=== PATIENT | male | born 1990 | race Caucasian/White ===

== ENCOUNTER 2017-01-23 22:48 | Emergency (ER) | payer MEDICAID ==
[2017-01-23] MEDS ORDERED: Ketorolac 30 MG/ML SDV IVPUSH ONE (22:54)
[2017-01-23] MEDS ORDERED: Sodium Chloride 0.9% 1,000 ML IV ONE (22:55)
[2017-01-23] MEDS ORDERED: Ondansetron 4 MG/2 ML SDV IVPUSH ONE (22:55)
--- NOTE | 2017-01-23 23:03 | EDM.PDOC ---
ED HPI GENERAL MEDICAL PROBLEM - General Chief Complaint: Abdominal Pain Stated Complaint: PT HAS STOMACH PAINS Time Seen by Provider: 01/24/17 00:29 - History of Present Illness INITIAL COMMENTS - FREE TEXT/NARRATIVE: HISTORY AND PHYSICAL: History of present illness: Patient 26-year-old white male presents with concern of abdominal pain and constipation he gives over last 2 days he denies diarrhea he states he has had some nausea vomiting denies fever chills denies trauma he has had prior cholecystectomy he denies other abdominal surgery Review of systems: As per history of present illness and below otherwise all systems reviewed and negative. Past medical history: As per history of present illness and as reviewed below otherwise noncontributory. Surgical history: As per history of present illness and as reviewed below otherwise noncontributory. Social history: No reported history of drug or alcohol abuse. Family history: As per history of present illness and as reviewed below otherwise noncontributory. Physical exam: HEENT: Atraumatic, normocephalic, pupils reactive, negative for conjunctival pallor or scleral icterus, mucous membranes moist, throat clear, neck supple, nontender, trachea midline. Lungs: Clear to auscultation, breath sounds equal bilaterally, chest nontender. Heart: S1S2, regular, negative for clicks, rubs, or JVD. Abdomen: Soft, nondistended, no localized tenderness. Negative for masses or hepatosplenomegaly. Negative for costovertebral tenderness. Pelvis: Stable nontender. Genitourinary: Deferred. Rectal: Deferred. Extremities: Atraumatic, negative for cords or calf pain. Neurovascular unremarkable. Neuro: Awake, alert, oriented. Cranial nerves II through XII unremarkable. Cerebellum unremarkable. Motor and sensory unremarkable throughout. Exam nonfocal. Diagnostics: CBC CMP amylase lipase UA UDS CT abdomen and pelvis Therapeutics: saline 1 L bolus Zofran 4 mg IV Toradol 30 mg IV Impression: #1 abdominal pain #2 constipation Definitive disposition and diagnosis as appropriate pending reevaluation and review of above. Abdominal Pain Score (Numeric/FACES): 9 - Related Data Allergies Allergy/AdvReac Type Severity Reaction Status Date / Time No Known Allergies Allergy Verified 01/23/17 22:53 Home Meds: Home Meds . [No Known Home Meds] 01/23/17 [History] ED ROS GENERAL - Review of Systems Review Of Systems: ROS reveals no pertinent complaints other than HPI. ED EXAM, GENERAL - Physical Exam Exam: See Below (See dictation) Course - Vital Signs Last Recorded V/S: Last Vital Signs Temp 36.5 C 01/23/17 22:57 Pulse 85 01/23/17 22:57 Resp 16 01/23/17 22:57 BP 154/99 H 01/23/17 22:57 Pulse Ox 96 01/23/17 22:57 - Orders/Labs/Meds Orders: Active Orders 24 hr Category Date Time Status Abdomen Pelvis wo Cont [CT] Stat Exams 01/23/17 22:57 Taken Labs: Laboratory Tests 01/23/17 01/23/17 01/23/17 Range/Units 23:00 23:00 23:00 WBC 11.15 H (4.0-11.0) K/uL RBC 5.05 (4.50-5.90) M/uL Hgb 15.7 (13.0-17.0) g/dL Hct 44.6 (38.0-50.0) % MCV 88.3 (80.0-98.0) fL MCH 31.1 (27.0-32.0) pg MCHC 35.2 (31.0-37.0) g/dL RDW Std Deviation 38.2 (28.0-62.0) fl RDW Coeff of Janie 12 (11.0-15.0) % Plt Count 237 (150-400) K/uL MPV 10.10 (7.40-12.00) fL Neut % (Auto) 65.8 (48.0-80.0) % Lymph % (Auto) 25.0 (16.0-40.0) % Woodward % (Auto) 7.4 (0.0-15.0) % Eos % (Auto) 1.4 (0.0-7.0) % Baso % (Auto) 0.4 (0.0-1.5) % Neut # (Auto) 7.3 H (1.4-5.7) K/uL Lymph # (Auto) 2.8 H (0.6-2.4) K/uL Woodward # (Auto) 0.8 (0.0-0.8) K/uL Eos # (Auto) 0.2 (0.0-0.7) K/uL Baso # (Auto) 0.0 (0.0-0.1) K/uL Nucleated RBC % 0.0 /100WBC Nucleated RBCs # 0 K/uL Sodium 141 (136-146) mmol/L Potassium 4.4 (3.5-5.1) mmol/L Chloride 109 (98-110) mmol/L Carbon Dioxide 20 L (21-31) mmol/L BUN 14 (6.0-23.0) mg/dL Creatinine 1.0 (0.6-1.5) mg/dL Est Cr Clr Drug Dosing 127.87 mL/min Estimated GFR (MDRD) > 60.0 ml/min Glucose 116 H (60-110) mg/dL Calcium 9.6 (8.8-10.8) mg/dL Total Bilirubin 0.4 (0.1-1.5) mg/dL AST 37 (5-40) IU/L ALT 70 H (8-54) IU/L Alkaline Phosphatase 63 (40-150) Total Protein 7.7 (6.0-8.0) g/dL Albumin 4.2 (3.5-5.0) g/dL Globulin 3.5 (2.0-3.5) g/dL Albumin/Globulin Ratio 1.2 L (1.3-2.8) Amylase 21 (10-90) U/L Lipase 10 (7-80) U/L Urine Color Urine Appearance Urine pH (5.0-8.0) Ur Specific [place] (1.001-1.035) Urine Protein (NEGATIVE) mg/dL Urine Glucose (UA) (NEGATIVE) mg/dL Urine Ketones (NEGATIVE) mg/dL Urine Occult Blood (NEGATIVE) Urine Nitrite (NEGATIVE) Urine Bilirubin (NEGATIVE) Urine Ictotest Urine Urobilinogen (<2.0) EU/dL Ur Leukocyte Esterase (NEGATIVE) Urine RBC (0-2/HPF) Urine WBC (0-5/HPF) Ur Epithelial Cells (NONE-FEW) Urine Bacteria (NEGATIVE) Urine Opiates Screen NEGATIVE (NEGATIVE) Ur Oxycodone Screen NEGATIVE (NEGATIVE) Urine Methadone Screen NEGATIVE (NEGATIVE) Ur Barbiturates Screen NEGATIVE (NEGATIVE) Ur Phencyclidine Scrn NEGATIVE (NEGATIVE) Ur Amphetamine Screen NEGATIVE (NEGATIVE) U Methamphetamines Scrn NEGATIVE (NEGATIVE) U Benzodiazepines Scrn NEGATIVE (NEGATIVE) U Cocaine Metab Screen NEGATIVE (NEGATIVE) U Marijuana (THC) Screen NEGATIVE (NEGATIVE) 01/23/17 Range/Units 23:00 WBC (4.0-11.0) K/uL RBC (4.50-5.90) M/uL Hgb (13.0-17.0) g/dL Hct (38.0-50.0) % MCV (80.0-98.0) fL MCH (27.0-32.0) pg MCHC (31.0-37.0) g/dL RDW Std Deviation (28.0-62.0) fl RDW Coeff of Janie (11.0-15.0) % Plt Count (150-400) K/uL MPV (7.40-12.00) fL Neut % (Auto) (48.0-80.0) % Lymph % (Auto) (16.0-40.0) % Woodward % (Auto) (0.0-15.0) % Eos % (Auto) (0.0-7.0) % Baso % (Auto) (0.0-1.5) % Neut # (Auto) (1.4-5.7) K/uL Lymph # (Auto) (0.6-2.4) K/uL Woodward # (Auto) (0.0-0.8) K/uL Eos # (Auto) (0.0-0.7) K/uL Baso # (Auto) (0.0-0.1) K/uL Nucleated RBC % /100WBC Nucleated RBCs # K/uL Sodium (136-146) mmol/L Potassium (3.5-5.1) mmol/L Chloride (98-110) mmol/L Carbon Dioxide (21-31) mmol/L BUN (6.0-23.0) mg/dL Creatinine (0.6-1.5) mg/dL Est Cr Clr Drug Dosing mL/min Estimated GFR (MDRD) ml/min Glucose (60-110) mg/dL Calcium (8.8-10.8) mg/dL Total Bilirubin (0.1-1.5) mg/dL AST (5-40) IU/L ALT (8-54) IU/L Alkaline Phosphatase (40-150) Total Protein (6.0-8.0) g/dL Albumin (3.5-5.0) g/dL Globulin (2.0-3.5) g/dL Albumin/Globulin Ratio (1.3-2.8) Amylase (10-90) U/L Lipase (7-80) U/L Urine Color YELLOW Urine Appearance CLEAR Urine pH 5.5 (5.0-8.0) Ur Specific [place] >= 1.030 (1.001-1.035) Urine Protein NEGATIVE (NEGATIVE) mg/dL Urine Glucose (UA) NEGATIVE (NEGATIVE) mg/dL Urine Ketones TRACE H (NEGATIVE) mg/dL Urine Occult Blood TRACE-LYSED (NEGATIVE) Urine Nitrite NEGATIVE (NEGATIVE) Urine Bilirubin SMALL H (NEGATIVE) Urine Ictotest NEGATIVE Urine Urobilinogen 0.2 (<2.0) EU/dL Ur Leukocyte Esterase NEGATIVE (NEGATIVE) Urine RBC 0-1 (0-2/HPF) Urine WBC 0-1 (0-5/HPF) Ur Epithelial Cells RARE (NONE-FEW) Urine Bacteria RARE (NEGATIVE) Urine Opiates Screen (NEGATIVE) Ur Oxycodone Screen (NEGATIVE) Urine Methadone Screen (NEGATIVE) Ur Barbiturates Screen (NEGATIVE) Ur Phencyclidine Scrn (NEGATIVE) Ur Amphetamine Screen (NEGATIVE) U Methamphetamines Scrn (NEGATIVE) U Benzodiazepines Scrn (NEGATIVE) U Cocaine Metab Screen (NEGATIVE) U Marijuana (THC) Screen (NEGATIVE) Meds: Medications Discontinued Medications Generic Name Dose Route Start Last Admin Trade Name Freq PRN Reason Stop Dose Admin Sodium Chloride 1,000 mls @ 999 mls/hr 01/23/17 22:55 01/23/17 23:10 Normal Saline IV 01/23/17 23:55 999 mls/hr .Bolus ONE Administration Ketorolac Tromethamine 30 mg 01/23/17 22:54 01/23/17 23:15 Toradol IVPUSH 01/23/17 22:55 30 mg ONETIME ONE Administration Ondansetron HCl 4 mg 01/23/17 22:55 01/23/17 23:15 Zofran IVPUSH 01/23/17 22:56 4 mg ONETIME ONE Administration Departure - Departure Time of Disposition: 00:29 Disposition: Home, Self-Care 01 Condition: Good Clinical Impression: Abdominal pain - Discharge Information Forms: ED Department Discharge Additional Instructions: The following information is given to patients seen in the emergency department who are being discharged to home. This information is to outline your options for follow-up care. We provide all patients seen in our emergency department with a follow-up referral. The need for follow-up, as well as the timing and circumstances, are variable depending upon the specifics of your emergency department visit. If you don't have a primary care physician on staff, we will provide you with a referral. We always advise you to contact your personal physician following an emergency department visit to inform them of the circumstance of the visit and for follow-up with them and/or the need for any referrals to a consulting specialist. The emergency department will also refer you to a specialist when appropriate. This referral assures that you have the opportunity for followup care with a specialist. All of these measure are taken in an effort to provide you with optimal care, which includes your followup. Under all circumstances we always encourage you to contact your private physician who remains a resource for coordinating your care. When calling for followup care, please make the office aware that this follow-up is from your recent emergency room visit. If for any reason you are refused follow-up, please contact the [facility] emergency department at and asked to speak to the emergency department charge nurse. [facility] - General Surgery Professional Building [address] [place] [address], [address] [place] [address] Push fluids clear liquids follow-up private medical doctor and/or general surgery above as discussed call to schedule appointment return as needed as discussed - My Orders Last 24 Hours: My Active Orders 01/23/17 22:57 Abdomen Pelvis wo Cont [CT] Stat - Assessment/Plan Last 24 Hours: My Active Orders 01/23/17 22:57 Abdomen Pelvis wo Cont [CT] Stat
[2017-01-23 23:36] LABS: CHLORIDE,CL 109 mmol/L (98-110); SODIUM,NA 141 mmol/L (136-146)
--- NOTE | 2017-01-24 14:25 | CT ---
EXAM DATE: 01/23/17 PATIENT'S AGE: 26 Patient: GINA RODRIGUEZ Facility: [place], [place] Site . Site : 1990 Study: CT Abdomen/Pelvis [id number]/3/2017 12:01:23 AM Ordering Physician: Doctor Ramirez Final Report: INDICATION: Left upper quadrant pain with nausea. History of cholecystectomy in 2011. TECHNIQUE: CT abdomen and pelvis without contrast. COMPARISON: None. FINDINGS: Lower chest: Unremarkable. Liver: Diffuse fatty infiltration of liver. Spleen: Unremarkable. Pancreas: Unremarkable. Gallbladder and bile ducts: Gallbladder is surgically absent. No abnormal biliary dilatation. Adrenal glands: Unremarkable. Kidneys: Unremarkable. No kidney or ureteral stones and no hydronephrosis. GI tract: Unremarkable. Appendix is normal. Vascular structures: Unremarkable. Lymph nodes: Unremarkable. Miscellaneous: Unremarkable. No free air or significant free fluid. Tiny fat containing umbilical hernia defect, series 201, image 107. Pelvic Organs: Unremarkable. Bones: Unremarkable for age. IMPRESSION: 1. Enlarged liver with extensive fatty infiltration. Craniocaudal dimension of liver 23.7 centimeters. 2. No clear etiology identified for patient`s clinical symptoms of left upper quadrant abdominal pain. Splenic size is normal. No pancreatitis or hydronephrosis. Dictated by Lc Duncan MD @ 01/24/2017 12:17:09 AM Dictated by: Lc Duncan MD @ 01/24/2017 00:17:15 (Electronic Signature) Report Signed by Proxy. [facility]
== END 2017-01-24 00:35 | disposition home or self-care (01) ==
LOC: MW.ED 22:48
DX: K59.00 Constipation, unspecified (principal); R10.32 Left lower quadrant pain; F17.210 Nicotine dependence, cigarettes, uncomplicated
CPT/HCPCS: 36415; 74176; 80053; 80305; 81001; 82150; 83690; 85025; 86140; 96361; 96374; 96375; 99284; A9270; J1885; J2405; J2765; J7040

== ENCOUNTER 2017-01-24 11:54 | Emergency (ER) | payer MEDICAID ==
--- NOTE | 2017-01-24 12:17 | EDM.PDOC ---
ED HPI GENERAL MEDICAL PROBLEM - General Chief Complaint: Abdominal Pain Stated Complaint: ABDOMINAL PAIN Time Seen by Provider: 01/24/17 12:16 Source of Information: Reports: Patient - History of Present Illness INITIAL COMMENTS - FREE TEXT/NARRATIVE: HISTORY AND PHYSICAL: History of present illness: []Patient with persistent abdominal pain over the last 3 days accompanying with nausea vomiting no fever chills sweats, he notes that for the most part he is unable to keep food down however last night he did eat a burrito at approximately midnight and Most of it down. No bowel movement the last 3 days No fever nausea vomiting chills sweats at current 8 out of 10 abdominal pain right lower quadrant as well as left lower quadrant Review of systems: As per history of present illness and below otherwise all systems reviewed and negative. Past medical history: As per history of present illness and as reviewed below otherwise noncontributory. Surgical history: As per history of present illness and as reviewed below otherwise noncontributory. Social history: No reported history of drug or alcohol abuse. Family history: As per history of present illness and as reviewed below otherwise noncontributory. Physical exam: HEENT: Atraumatic, normocephalic, pupils reactive, negative for conjunctival pallor or scleral icterus, mucous membranes moist, throat clear, neck supple, nontender, trachea midline. Lungs: Clear to auscultation, breath sounds equal bilaterally, chest nontender. Heart: S1S2, regular, negative for clicks, rubs, or JVD. Abdomen: Soft, nondistended, significant tenderness in the left lower quadrant however right lower quadrant tenderness has developed with guarding. Negative for masses or hepatosplenomegaly. Negative for costovertebral tenderness. Pelvis: Stable nontender. Genitourinary: Deferred. Rectal: Deferred. Extremities: Atraumatic, negative for cords or calf pain. Neurovascular unremarkable. Neuro: Awake, alert, oriented. Cranial nerves II through XII unremarkable. Cerebellum unremarkable. Motor and sensory unremarkable throughout. Exam nonfocal. Diagnostics: []CBC Therapeutics: []1 L normal saline Zofran 8 mg IV Toradol [address] Sheikh general surgery was consult of disposition and further treatment and disposition pending his evaluation Impression: [Abdominal pain] Definitive disposition and diagnosis as appropriate pending reevaluation and review of above. Left Lower Abdominal Pain Score (Numeric/FACES): 7 - Related Data Allergies Allergy/AdvReac Type Severity Reaction Status Date / Time No Known Allergies Allergy Verified 01/24/17 12:06 Home Meds: Home Meds . [No Known Home Meds] 01/23/17 [History] Past Medical History - Past Health History Medical/Surgical History: Denies Medical/Surgical History Endocrine/Metabolic History: Reports: Obesity/BMI 30+ - Infectious Disease History Infectious Disease History: Reports: Chicken Pox - Past Surgical History GI Surgical History: Reports: Cholecystectomy Social & Family History - Family History Family Medical History: Noncontributory - Tobacco Use Smoking Status *Q: Current Every Day Smoker Years of Tobacco use: 10 Packs/Tins Daily: 1 - Recreational Drug Use Recreational Drug Use: No ED ROS GENERAL - Review of Systems Review Of Systems: ROS reveals no pertinent complaints other than HPI. ED EXAM, GENERAL - Physical Exam Exam: See Below Course - Vital Signs Last Recorded V/S: Last Vital Signs Temp 35.7 C 01/24/17 12:04 Pulse 83 01/24/17 12:04 Resp 22 H 01/24/17 12:04 BP 138/98 H 01/24/17 12:04 Pulse Ox 95 01/24/17 12:04 - Orders/Labs/Meds Orders: Active Orders 24 hr Category Date Time Status Notify Provider Consults [RC] ASDIRECTED Care 01/24/17 13:16 Active Consult to Physician [CONS] Stat Cons 01/24/17 13:14 Active Labs: Laboratory Tests 01/24/17 01/24/17 Range/Units 12:28 12:28 WBC 9.51 (4.0-11.0) K/uL RBC 4.82 (4.50-5.90) M/uL Hgb 14.8 (13.0-17.0) g/dL Hct 42.5 (38.0-50.0) % MCV 88.2 (80.0-98.0) fL MCH 30.7 (27.0-32.0) pg MCHC 34.8 (31.0-37.0) g/dL RDW Std Deviation 38.3 (28.0-62.0) fl RDW Coeff of Janie 12 (11.0-15.0) % Plt Count 221 (150-400) K/uL MPV 9.80 (7.40-12.00) fL Neut % (Auto) 68.2 (48.0-80.0) % Lymph % (Auto) 22.6 (16.0-40.0) % Terry % (Auto) 7.5 (0.0-15.0) % Eos % (Auto) 1.4 (0.0-7.0) % Baso % (Auto) 0.3 (0.0-1.5) % Neut # (Auto) 6.5 H (1.4-5.7) K/uL Lymph # (Auto) 2.2 (0.6-2.4) K/uL Terry # (Auto) 0.7 (0.0-0.8) K/uL Eos # (Auto) 0.1 (0.0-0.7) K/uL Baso # (Auto) 0.0 (0.0-0.1) K/uL Nucleated RBC % 0.0 /100WBC Nucleated RBCs # 0 K/uL C-Reactive Protein 0.20 (0.0-0.5) mg/dL Meds: Medications Discontinued Medications Generic Name Dose Route Start Last Admin Trade Name Freq PRN Reason Stop Dose Admin Glycerin 1.5 gm 01/24/17 14:03 01/24/17 14:14 Sani-Supp Pediatric RECTAL 01/24/17 14:04 1.5 gm ONETIME ONE Administration Sodium Chloride 1,000 mls @ 999 mls/hr 01/24/17 13:05 01/24/17 13:20 Normal Saline IV 01/24/17 14:05 999 mls/hr STAT ONE Administration Ketorolac Tromethamine 30 mg 01/24/17 13:05 01/24/17 13:20 Toradol IVPUSH 01/24/17 13:06 30 mg ONETIME ONE Administration Metoclopramide HCl 10 mg 01/24/17 14:03 01/24/17 14:08 Reglan IV 01/24/17 14:04 10 mg ONETIME ONE Administration Ondansetron HCl 8 mg 01/24/17 13:05 01/24/17 13:20 Zofran IVPUSH 01/24/17 13:06 8 mg ONETIME ONE Administration Departure - Departure Time of Disposition: 14:47 Disposition: Still A Patient 30 Condition: Fair Clinical Impression: Abdominal pain - Discharge Information Referrals: PCP,None [Primary Care Provider] - Forms: ED Department Discharge - My Orders Last 24 Hours: My Active Orders 01/24/17 13:14 Consult to Physician [CONS] Stat 01/24/17 13:16 Notify Provider Consults [RC] ASDIRECTED - Assessment/Plan Last 24 Hours: My Active Orders 01/24/17 13:14 Consult to Physician [CONS] Stat 01/24/17 13:16 Notify Provider Consults [RC] ASDIRECTED
[2017-01-24] MEDS ORDERED: Sodium Chloride 0.9% 1,000 ML IV ONE (13:05)
[2017-01-24] MEDS ORDERED: Ketorolac 30 MG/ML SDV IVPUSH ONE (13:05)
[2017-01-24] MEDS ORDERED: Ondansetron 4 MG/2 ML SDV IVPUSH ONE (13:05)
[2017-01-24] MEDS ORDERED: Metoclopramide 10 MG/2 ML SDV IV ONE (14:03)
[2017-01-24] MEDS ORDERED: Glycerin Pediatric 1.2 GM Supp RECTAL ONE (14:03)
--- NOTE | 2017-01-24 21:23 | CONS ---
DATE OF CONSULTATION: 01/24/2017 DATE OF : 1990 PRIMARY CARE PHYSICIAN: None PCP Consult from Dr. Rosario from emergency room. CONCERNING QUESTION: Abdominal pain. HISTORY OF PRESENT ILLNESS: The patient is 26-year-old gentleman, weight 358 pounds, complained 1 to 2-day history of left upper quadrant pain. Denied fever, chill, or diarrhea. Seen in the emergency room 24 hours ago and after the CAT scan read normal appendix, the patient was sent home. Four hours later, the patient came back complaining about pain in the abdomen. By then, he is complaining about pain is diffuse, both left lower quadrant and right lower quadrant. Still denied nausea and vomiting. I asked the patient "are you hungry, do you want to eat." He said "I am always hungry." Denied diarrhea. Denied prior episode. The patient mentioned that the pain is about 9 or 10 when he came in the emergency room 24 hours ago and when he came back, his pain is about 4 or 5. By the time I examined him, the patient already had Toradol and he has absolutely no pain. PAST SURGICAL HISTORY: Laparoscopic cholecystectomy. ALLERGIES: Please refer nursing for details. MEDICATIONS: Please refer nursing for details. REVIEW OF SYSTEMS: Same as history of present illness. FAMILY HISTORY: Noncontributory. PHYSICAL EXAMINATION: GENERAL: On examination, a very pleasant, nice gentleman, smiled to the doctor, in no acute distress HEENT: Normocephalic, atraumatic. Sclerae anicteric. LUNGS: Clear to auscultation. HEART: Regular rate and rhythm. ABDOMEN: Soft, nondistended. No pulsating tender midline abdominal structure. Obese. Protuberance. No hernia appreciated. Minimal tenderness in the left upper quadrant. No tenderness in the right lower quadrant. LABORATORY VALUES: . IMAGING DATA: CAT scan is normal appendix. IMPRESSION: Abdominal pain. There is always a slight possibility of appendicitis because the patient is morbidly obese and difficult to exam. However, the patient jumped in front of me multiple times, more than 10 times, with absolutely no pain; jumped up and down and touched the ceiling, he has no pain. White count normal. CT scan, no dirty fat, and everything assessed. The patient is at very low risk for appendicitis or if there is appendicitis, it is early. The patient can be observed for 24 hours and if the patient has acute appendicitis, it will self-declare. Because the patient [place] from the neighborhood, 5 minutes from the emergency room, he can go home. He agreed to be on ice chip, no Tylenol, no aspirin, no pain medication. If the pain increaes, the patient may come back to the ER for further assessment. On top of this, the patient weighed 358 pounds and the patient may be difficult to have laparoscopic surgery and may be at risk for open surgery. The patient understands and again, the patient totally understand the plan for observation, either stay in the hospital observation or home observation, with no solid food, only ice chip and no pain medication or Tylenol. The patient concurred. As always, thank you for the kind referral. GUS JOHNSON /[id number] ZACH
== END 2017-01-24 15:13 | disposition home or self-care (01) ==
LOC: MW.ED 11:54
DX: R10.32 Left lower quadrant pain (principal); F17.210 Nicotine dependence, cigarettes, uncomplicated
CPT/HCPCS: 36415; 85025; 86140; 96361; 96374; 96375; 99284; A9270; J1885; J2405; J2765; J7040

== ENCOUNTER 2017-04-25 09:33 | Emergency (ER) | payer SELFPAY ==
[2017-04-25] MEDS ORDERED: Albuterol/Ipratropium 3.0-0.5 MG/3 ML Neb Soln NEB ONE (10:24)
--- NOTE | 2017-04-25 10:24 | EDM.PDOC ---
ED HPI GENERAL MEDICAL PROBLEM - General Chief Complaint: Respiratory Problem Stated Complaint: SOER THROAT, DIAHREA, HEADACHE, BLURRY VISION Time Seen by Provider: 04/25/17 10:02 Source of Information: Reports: Patient History Limitations: Reports: No Limitations - History of Present Illness INITIAL COMMENTS - FREE TEXT/NARRATIVE: HISTORY AND PHYSICAL: History of present illness: Patient is a 26-year-old male who presents to the emergency room today with complaints of sore throat, body aches, headache, sinus pressure, cough and intermittent fevers 2 days. He states he used Advil yesterday but is still not feeling well. Denies any chest pain, shortness of breath, abdominal pain, nausea , vomiting or diarrhea. He does smoke daily. Did not receive an influenza vaccine this year. Review of systems: As per history of present illness and below otherwise all systems reviewed and negative. Past medical history: As per history of present illness and as reviewed below otherwise noncontributory. Surgical history: As per history of present illness and as reviewed below otherwise noncontributory. Social history: No reported history of drug or alcohol abuse. Family history: As per history of present illness and as reviewed below otherwise noncontributory. Physical exam: General: Well-developed and well-nourished 26-year-old male. Alert and oriented. Nontoxic appearing and in no acute distress. HEENT: Atraumatic, normocephalic, pupils reactive, negative for conjunctival pallor or scleral icterus, mucous membranes moist, maxillary sinus pressure with palpation, mild erythema to the posterior oropharynx otherwise throat clear , neck supple, nontender, trachea midline. Lungs: Expiratory wheezing noted throughout, breath sounds equal bilaterally, chest nontender. Heart: S1S2, regular rate and rhythm Abdomen: Soft, nondistended, nontender. Negative for masses or hepatosplenomegaly. Negative for costovertebral tenderness. Pelvis: Stable nontender. Genitourinary: Deferred. Rectal: Deferred. Extremities: Atraumatic, negative for cords or calf pain. Neurovascular unremarkable. Neuro: Awake, alert, oriented. Cranial nerves II through XII unremarkable. Cerebellum unremarkable. Motor and sensory unremarkable throughout. Exam nonfocal. Influenza and strep are negative. Chest x-ray shows no evidence of infiltrate or pneumonia. Due to the patient's history of smoking and wheezing noted with his physical exam will treat with azithromycin, Phenergan with codeine and a Medrol Dosepak. Instructed the patient to follow-up with his primary care provider in the next couple days. He voices understanding and is agreeable to plan of care. Diagnostics: Strep, influenza, 2 view chest Therapeutics: [] Impression: #1 Viral illness #2 Bronchitis Plan: 1. Please stop smoking. 2. Take the Z-ezequiel and Medrol Dosepak as directed. Phenergan with codeine for cough, please reserve for night time use as it may cause drowsiness. Do not take while driving or needing to be functioning outside the house. 3. Drink plenty of fluids to prevent dehydration. Rest for the next 24 hours. 4. Follow-up with your primary care provider in the next couple days. Return to the ED as needed and as we discussed. Definitive disposition and diagnosis as appropriate pending reevaluation and review of above. Duration: Day(s): Location: Reports: Head, Chest Neck Pain Score (Numeric/FACES): 7 - Related Data Allergies Allergy/AdvReac Type Severity Reaction Status Date / Time No Known Allergies Allergy Verified 04/25/17 10:04 Home Meds: Home Meds . [No Known Home Meds] 01/23/17 [History] Past Medical History - Past Health History Medical/Surgical History: Denies Medical/Surgical History Endocrine/Metabolic History: Reports: Obesity/BMI 30+ - Infectious Disease History Infectious Disease History: Reports: Chicken Pox - Past Surgical History GI Surgical History: Reports: Cholecystectomy Social & Family History - Family History Family Medical History: Noncontributory - Tobacco Use Smoking Status *Q: Current Every Day Smoker Years of Tobacco use: 8 Packs/Tins Daily: 1 - Caffeine Use Caffeine Use: Reports: Soda - Recreational Drug Use Recreational Drug Use: No ED ROS GENERAL - Review of Systems Review Of Systems: ROS reveals no pertinent complaints other than HPI. ED EXAM, GENERAL - Physical Exam Exam: See Below (See dictation) Course - Vital Signs Last Recorded V/S: Last Vital Signs Temp 96.5 F 04/25/17 10:01 Pulse 130 H 04/25/17 10:01 Resp 22 H 04/25/17 10:01 BP 134/89 04/25/17 10:01 Pulse Ox 95 04/25/17 10:01 - Orders/Labs/Meds Orders: Active Orders 24 hr Category Date Time Status RT Aerosol Therapy [RC] ASDIRECTED Care 04/25/17 10:24 Active CULTURE STREP A CONFIRMATION [RM] Stat Lab 04/25/17 10:18 Results STREP SCRN A RAPID W CULT CONF [RM] Stat Lab 04/25/17 10:18 Results Meds: Medications Discontinued Medications Generic Name Dose Route Start Last Admin Trade Name Freq PRN Reason Stop Dose Admin Albuterol/Ipratropium 3 ml 04/25/17 10:24 04/25/17 10:34 Duoneb 3.0-0.5 Mg/3 Ml NEB 04/25/17 10:25 3 ml ONETIME ONE Administration Departure - Departure Time of Disposition: 11:08 Disposition: Home, Self-Care 01 Clinical Impression: Bronchitis, Viral illness - Discharge Information Referrals: PCP,None [Primary Care Provider] - Forms: ED Department Discharge Additional Instructions: My general discharge The following information is given to patients seen in the emergency department who are being discharged to home. This information is to outline your options for follow-up care. We provide all patients seen in our emergency department with a follow-up referral. The need for follow-up, as well as the timing and circumstances, are variable depending upon the specifics of your emergency department visit. If you don't have a primary care physician on staff, we will provide you with a referral. We always advise you to contact your personal physician following an emergency department visit to inform them of the circumstance of the visit and for follow-up with them and/or the need for any referrals to a consulting specialist. The emergency department will also refer you to a specialist when appropriate. This referral assures that you have the opportunity for follow-up care with a specialist. All of these measure are taken in an effort to provide you with optimal care, which includes your follow-up. Under all circumstances we always encourage you to contact your private physician who remains a resource for coordinating your care. When calling for follow-up care, please make the office aware that this follow-up is from your recent emergency room visit. If for any reason you are refused follow-up, please contact the [facility] Emergency Department at and asked to speak to the emergency department charge nurse. [facility] Primary [address] [address] 1. Please stop smoking. 2. Take the Z-ezequiel and Medrol Dosepak as directed. Phenergan with codeine for cough, please reserve for night time use as it may cause drowsiness. Do not take while driving or needing to be functioning outside the house. 3. Drink plenty of fluids to prevent dehydration. Rest for the next 24 hours. 4. Follow-up with your primary care provider in the next couple days. Return to the ED as needed and as we discussed. - My Orders Last 24 Hours: My Active Orders 04/25/17 10:18 CULTURE STREP A CONFIRMATION [RM] Stat STREP SCRN A RAPID W CULT CONF [RM] Stat 04/25/17 10:24 RT Aerosol Therapy [RC] ASDIRECTED - Assessment/Plan Last 24 Hours: My Active Orders 04/25/17 10:18 CULTURE STREP A CONFIRMATION [RM] Stat STREP SCRN A RAPID W CULT CONF [RM] Stat 04/25/17 10:24 RT Aerosol Therapy [RC] ASDIRECTED
--- NOTE | 2017-04-25 11:10 | CR ---
PA and lateral chest Clinical history: Wheezing Comparison: None Findings: The gastric angles are clear. The cardiac mediastinum is normal and the lungs are clear. Impression: Normal chest
== END 2017-04-25 11:27 | disposition home or self-care (01) ==
LOC: MW.ED 09:33
DX: J40 Bronchitis, not specified as acute or chronic (principal); B34.9 Viral infection, unspecified; F17.210 Nicotine dependence, cigarettes, uncomplicated
CPT/HCPCS: 71046; 71046-26; 87081; 87804; 87880; 94640; 99284; 99284-25